=== PATIENT | female | born 1965 | race Caucasian/White ===

== ENCOUNTER 2023-06-17 13:08 | Emergency (ER) | payer OTHER, SELFPAY ==
[2023-06-17 13:09] VITALS: BP 120/76
[2023-06-17 13:44] VITALS: BP 98/59
[2023-06-17 13:51] LABS: % Basophils 0.5 % (0-2); % Eosinophils 2.7 % (0-6); % Immature Granulocytes 0.3 % (0-0.5); % Lymphocytes 26.3 % (20.5-51.1); % Monocytes 10.1 % (1.7-9.3); % Neutrophils 60.1 % (42.2-75.2); Absolute Eosinophils 0.1 10^3/uL (0-0.7); Absolute Monocytes 0.4 10^3/uL (0.1-0.6); Absolute Neutrophils 2.3 10^3/uL (1.4-6.5); Hematocrit 35.4 % (37.0-47.0); Hemoglobin 12.2 g/dL (12.0-16.0); Mean Corp Hgb Conc. 34.5 g/dL (33.0-37.0); Mean Corpuscular Hgb 30.7 pg (27.0-31.0); Mean Corpuscular Volume 89.2 fL (81.0-99.0); Mean Platelet Volume 9.7 fL (7.4-10.4); Nucleated Red Blood Cells % 0 %; Platelet Count 220 10^3/uL (130-400); Red Blood Cell Count 3.97 10^6/uL (4.20-5.40); Red Cell Dist. Width 12.1 % (11.5-14.5); White Blood Cell Count 3.8 10^3/uL (4.8-10.8)
[2023-06-17 14:06] LABS: ALT (SGPT) 22 U/L (0-35); AST (SGOT) 24 U/L (14-36); Albumin 4.4 g/dl (3.5-5.0); Alkaline Phosphatase 94 U/L (38-126); Blood Urea Nitrogen 16 mg/dl (7-17); Carbon Dioxide 27 mmol/L (22-30); Chloride 105 mmol/L (98-107); Glucose 113 mg/dl (70-99); Potassium 3.7 mmol/L (3.5-5.1); Sodium 138 mmol/L (135-145); Total Bilirubin 0.3 mg/dl (0.2-1.3); Total Protein 6.9 g/dl (6.3-8.2); eGFR > 60.00
[2023-06-17 14:08] VITALS: BP 93/64
[2023-06-17 14:17] LABS: Troponin I < 0.012 ng/ml
[2023-06-17 14:22] LABS: Urine Albumin Negative (Neg - Trace); Urine Bilirubin Negative (Negative); Urine Character Clear (Clear); Urine Color Yellow; Urine Glucose Negative (Negative); Urine Ketone Negative (Negative); Urine Leukocyte Negative (Negative); Urine Nitrite Negative (Negative); Urine Occult Blood Negative (Negative); Urine Urobilinogen Negative (Neg - 1+)
[2023-06-17 15:00] VITALS: BP 111/74
--- NOTE | 2023-06-17 15:26 | ED.GENMED ---
History of Present Illness
General
Chief Complaint: Chest Pain
Source: patient
Exam Limitations: none
Time Seen by Provider: 06/17/23 13:23
Nursing documentation reviewed up to this point in time: agreed with
Travel History
Have you had any contact with someone who has COVID-19?: No
Do you have any symptoms of coronavirus? Fever > 100 degrees, chills, cough, shortness of breath, sore throat, loss of taste or smell, muscle aches, or headache?: No
History of Present Illness
History of Present Illness:
58-year-old female with no significant past medical history states she woke at 7 AM with right chest sharp pains at the level of her breast. She took 2 baby aspirin and Tums about 30 minutes later had some relief.
She states the pain is worse with deep breathing, pressing on the area. She had a recent URI 2 to 3 weeks ago after her had COVID. She tested COVID-negative however.
She did a lot of vacuuming yesterday because she got a new vacuum, she has been lifting up up her 27 pound dog as it recently had surgery
She denies N/V/D/C, denies shortness of breath or abdominal pain. She has had no lightheadedness or diaphoresis.
Past History
Past History
ED Past Medical History: None
ED Past Surgical History: Cholecystectomy and
Social History
Tobacco: Former smoker
Alcohol: Occasional
Personal:
Living: with family
Employment: Employed
Family History
Family History: CAD (Dad had [place] at age 50, at age 79, mom had MO in her 60s, age 70)
Review of Systems
Review of Systems
Allergies reviewed?: Yes
All Other Systems: ROS reviewed and negative except as documented in HPI and ROS
Constitutional: Denies fever
Respiratory: Denies trouble breathing
Cardiac: Reports chest pain (more chest wall pain); Denies diaphoresis, palpitations or syncope
ABD/GI: Denies abdominal pain, nausea or vomiting
: Reports frequency; Denies dysuria, flank pain, difficulty voiding or urgency
Skin: Reports no symptoms
Neurological: Reports no symptoms
Phy Exam
Physical Exam
Physical Exam:
GENERAL: No acute distress. A&Ox3.
CONSTITUTIONAL: Afebrile.
EYES: clear, conjunctivae normal
Neck: Supple
ENMT: moist mucus membranes, Pharynx nl
RESPIRATORY: Regular respirations, nonlabored, lungs clear.
CARDIOVASCULAR: Regular rate and rhythm, no murmurs, no rubs.
GI: Soft, nontender, normal BS
MUSCULOSKELETAL: Tender to palpation right sternocostal border, palpation here immediately reproduces pain. Moves with ease. Well perfused.
SKIN: Warm, dry, pink
PSYCH: Normal mood and affect. Well kept, interactive and appropriate
NEUROLOGIC: Awake, alert and oriented. No focal neurological deficits
Scores
Heart Score for Chest Pain Patients
STEMI patient?: Not applicable
Course
Orders/Labs/Results
Orders:
Orders
06/17/23 13:11
Electrocardiogram (*1) Urgent
Reason for Study: Chest Pain
EKG- Treatment ONCE
06/17/23 13:33
Complete Blood Count/With Diff Urgent
Comprehensive Metabolic Panel Urgent
Troponin I Urgent
06/17/23 14:10
Urinalysis Reflex To Culture Urgent
Date Specimen was Collected: 06/17/23
Time Specimen was Collected: 14:03
Abnormal Lab Results
06/17/23
13:33
WBC 3.8 L 10^3/uL
(4.8-10.8)
RBC 3.97 L 10^6/uL
(4.20-5.40)
Hct 35.4 L %
(37.0-47.0)
Absolute Lymphs (auto) 1.0 L 10^3/uL
(1.2-3.4)
Monocytes % 10.1 H %
(1.7-9.3)
Glucose 113 H mg/dl
(70-99)
06/17/23 13:33
06/17/23 13:33
Vital Signs
Initial and Last Documented VS:
Initial Vital Signs
Temp Pulse Resp BP Pulse Ox
98.1 F 79 16 120/76 98
06/17/23 13:09 06/17/23 13:09 06/17/23 13:09 06/17/23 13:09 06/17/23 13:09
Last Documented Vital Signs
Temp Pulse Resp BP Pulse Ox
98.1 F 66 18 111/74 99
06/17/23 13:09 06/17/23 15:30 06/17/23 15:30 06/17/23 15:00 06/17/23 15:15
MDM/Problems Addressed
Differential Diagnosis Includes:
Costochondritis, ACS less likely
MDM/Problems Addressed:
58-year-old female with no significant past medical history states she woke at 7 AM with right chest sharp pains at the level of her breast. She took 2 baby aspirin and Tums about 30 minutes later had some relief.
She states the pain is worse with deep breathing, pressing on the area. She had a recent URI 2 to 3 weeks ago after her had COVID. She tested COVID-negative however.
She did a lot of vacuuming yesterday because she got a new vacuum, she has been lifting up up her 27 pound dog as it recently had surgery
She denies N/V/D/C, denies shortness of breath or abdominal pain. She has had no lightheadedness or diaphoresis.
She has been having urinary frequency, followed by her PCP
Afebrile. EKG: NSR
3:29 PM
CBC with no clinically significant abnormality
CMP normal
Troponin normal
Urinalysis negative
Patient reassured most likely costochondritis
*EKG
EKG Intrepretation Date: 06/17/23
Interpretation: normal
Rate: normal
Rhythm: sinus
[place]: normal axis
Interval: normal interval
QRS Pattern: normal QRS
Ischemia: no ischemia
*Critical Care Note
Total Time (30-74mins, 75-104mins- exclusive of procedures): Not Applicable
ED Attending Note
-
Portions of this chart may have been created with voice recognition software.� Occasional wrong word or��sound alike� substitutions may have occurred due to the inherent limitations of voice recognition software.
Discharge Plan
Departure
Patient Disposition: Home (Routine Discharge)
Date of Disposition: 06/17/23
Time of Disposition: 15:30
Patient with high blood pressure during this ER visit?: No
Condition: Good
Discharge Problem:
Acute costochondritis
Instructions: Chest Pain That Is Not Caused by the Heart (DC), Costochondritis (DC)
Prescriptions:
No Action
cephalexin 500 MG capsule
500 mg PO TID Qty: 15 0RF
cefpodoxime 200 mg tablet
200 mg PO BID 10 Days Qty: 20 0RF
Referrals:
Vicky Martinez MD [Family Provider] - As needed
Activity Restrictions/Additional Instructions:
As we discussed, there is no indication of any damage to your heart, your history and exam is consistent with costochondritis. Avoid lifting anything over 5 pounds for the next week.
Ibuprofen 600 mg, with food, every 6 hours as needed for pain.
Your urine test showed no sign of infection.
Interventions
Interventions:
*Risk Screen - Suicide Last Done: 06/17/23 13:31
*Neglect/Abuse Screening Last Done: 06/17/23 13:31
*ED COVID-19 Vaccine History Last Done: 06/17/23 13:09
*Nursing Disposition Last Done: 06/17/23 15:52
ED- Cardiac Assessment Last Done: 06/17/23 13:31
Discharge Date and Time
Discharge Date/Time: 06/17/23 15:52
Print Language: INDONESIAN
== END 2023-06-17 15:52 | disposition home or self-care (01) ==
LOC: EMR 13:08
PROVIDERS: Registered Nurse; EMERGENCY PHYSICIAN Emergency Medicine; FAMILY PHYSICIAN Family Medicine
DX: M94.0 Chondrocostal junction syndrome [Tietze] (principal); Z87.891 Personal history of nicotine dependence
CPT/HCPCS: 99284; 80053; 81003; 84484; 85025; 93005

== ENCOUNTER 2023-06-20 09:20 | Emergency (ER) | payer OTHER, SELFPAY ==
[2023-06-20 09:23] VITALS: BP 137/90
[2023-06-20 09:48] LABS: % Basophils 0.3 % (0-2); % Eosinophils 0.9 % (0-6); % Immature Granulocytes 0.3 % (0-0.5); % Lymphocytes 8.5 % (20.5-51.1); % Monocytes 6.3 % (1.7-9.3); % Neutrophils 83.7 % (42.2-75.2); Absolute Eosinophils 0.1 10^3/uL (0-0.7); Absolute Monocytes 0.7 10^3/uL (0.1-0.6); Absolute Neutrophils 9.3 10^3/uL (1.4-6.5); Hematocrit 37.7 % (37.0-47.0); Hemoglobin 12.9 g/dL (12.0-16.0); Mean Corp Hgb Conc. 34.2 g/dL (33.0-37.0); Mean Corpuscular Hgb 30.8 pg (27.0-31.0); Mean Platelet Volume 9.6 fL (7.4-10.4); Nucleated Red Blood Cells % 0 %; Platelet Count 225 10^3/uL (130-400); Red Blood Cell Count 4.19 10^6/uL (4.20-5.40); Red Cell Dist. Width 12.1 % (11.5-14.5); White Blood Cell Count 11.2 10^3/uL (4.8-10.8)
[2023-06-20 09:56] VITALS: BMI 33.6
[2023-06-20 10:07] LABS: ALT (SGPT) 19 U/L (0-35); AST (SGOT) 23 U/L (14-36); Albumin 4.6 g/dl (3.5-5.0); Alkaline Phosphatase 104 U/L (38-126); Blood Urea Nitrogen 11 mg/dl (7-17); Calcium 9.4 mg/dl (8.4-10.2); Carbon Dioxide 28 mmol/L (22-30); Chloride 101 mmol/L (98-107); Estimated Creatinine Clearance 109 ml/min; Glucose 117 mg/dl (70-99); Lipase 48 U/L (23-300); Sodium 134 mmol/L (135-145); Total Bilirubin 0.9 mg/dl (0.2-1.3); Total Protein 7.4 g/dl (6.3-8.2); eGFR > 60.00
--- NOTE | 2023-06-20 10:17 | ED.GENMED ---
History of Present Illness
General
Chief Complaint: Abdominal Pain
Source: patient
Exam Limitations: none
Time Seen by Provider: 06/20/23 09:48
Nursing documentation reviewed up to this point in time: agreed with
Travel History
Have you had any contact with someone who has COVID-19?: No
Do you have any symptoms of coronavirus? Fever > 100 degrees, chills, cough, shortness of breath, sore throat, loss of taste or smell, muscle aches, or headache?: No
History of Present Illness
History of Present Illness:
pt is a 58 y/o F
no sig chronic medical problems
here with abdominal pain x 2 days
pt says that she was having some belching and gas and chest discomfort 3 days ago and was seen here
it was i nthe setting of recently carrying her dog who had surgery and it was felt after her cardiac w/u was neg that it was likely muscular
she was told to take tylenol/motrin
pt says that she went home and the following evening started having epigastric and mid abdominal pain and hasn't really had an appetite since. she had a few loose stools yesterday but not diarrhea. she woke up this morning with the same pain and
decided to come in rather than claling her PCP
she has not taken anything for pain
felt like she had a fever yesterday but didn't take her temp
no tylenol/motrin today, denies vomiting, cp, sob.
Past History
Past History
ED Past Medical History: None
ED Past Surgical History: Cholecystectomy and
Social History
Tobacco: Former smoker
Alcohol: Occasional
Personal:
Living: with family
Employment: Employed
Family History
Family History: CAD (Dad had [place] at age 50, at age 79, mom had [place] in her 60s, age 70)
Review of Systems
Review of Systems
Allergies reviewed?: Yes
All Other Systems: Not applicable
Phy Exam
Physical Exam
Physical Exam:
GENERAL: Alert , in no apparent distress
EYE: pupils equal and reactive
NECK: Supple
ENT: o/p clr, mmm.
CARDIAC: Regular rate and rhythm .
LUNGS: Clear breath sounds bilaterally, no acute respiratory distress, no wheezes/rales/rhonchi
ABDOMEN: Soft,mild epigastric tenderness, no RUQ tendenress/miranda's sign; no r/g, no cvat, normal bowel sounds
NEUROLOGICAL: Alert and oriented, no focal neuro deficits
SKIN: Warm and dry, skin intact.
MUSCULOSKELETAL: No edema, well perfused.
PSYCH: Normal and appropriate interaction.
Course
Orders/Labs/Results
Orders:
Orders
06/20/23 09:37
Complete Blood Count/With Diff Urgent
Comprehensive Metabolic Panel Urgent
Lipase Urgent
06/20/23 10:12
CT Abd/Pel (IV only)-DH only Urgent
Comment:
Reason For Exam: abd pain, belching, bloating
Famotidine [Pepcid] 20 mg IV NOW STA
06/20/23 10:13
CR Chest - 2 Views Urgent
Comment:
Reason For Exam: chest pain a few days ago, bleching
06/20/23 10:25
COVID-19 Antigen Urgent
Source: Nasal Swab
Influenza A+B Rapid Molecular Urgent
SHAYNA Source: Nasal Swab
Specimen Description:
06/20/23 13:25
Dicyclomine [Bentyl] 20 mg PO NOW STA
Abnormal Lab Results
06/20/23
09:37
WBC 11.2 H 10^3/uL
(4.8-10.8)
RBC 4.19 L 10^6/uL
(4.20-5.40)
Absolute Neuts (auto) 9.3 H 10^3/uL
(1.4-6.5)
Absolute Lymphs (auto) 1.0 L 10^3/uL
(1.2-3.4)
Absolute Monos (auto) 0.7 H 10^3/uL
(0.1-0.6)
Neutrophils % 83.7 H %
(42.2-75.2)
Lymphocytes % 8.5 L %
(20.5-51.1)
Sodium 134 L mmol/L
(135-145)
Glucose 117 H mg/dl
(70-99)
06/20/23 09:37
06/20/23 09:37
Vital Signs
Initial and Last Documented VS:
Initial Vital Signs
Temp Pulse Resp BP Pulse Ox
98.0 F 108 20 137/90 96
06/20/23 09:23 06/20/23 09:23 06/20/23 09:23 06/20/23 09:23 06/20/23 09:23
Last Documented Vital Signs
Temp Pulse Resp BP Pulse Ox
98.4 F 99 20 111/59 96
06/20/23 13:35 06/20/23 13:35 06/20/23 09:23 06/20/23 13:35 06/20/23 13:35
MDM/Problems Addressed
Differential Diagnosis Includes:
Gastritis, colitis, viral syndrome, constipation
MDM/Problems Addressed:
88-year-old female presents for mild to moderate upper and mid abdominal discomfort over the last 2 days. Patient was here the day before the pain started with some chest discomfort, had a workup with an EKG and troponin and that were normal and
was told it was probably musculoskeletal. Patient had previously had been lifting her dog who was postop from a procedure. The following day she got some abdominal bloating and discomfort and lack of appetite, fatigue, had some looser stool
yesterday but did not qualify it as diarrhea but says it was a pretty decent volume, 4 episodes total but has not had any diarrhea today. Today she just feels lack of appetite and the same discomfort. She has no risk factors for ischemic colitis.
On exam she had mild epigastric discomfort and some bloating, active bowel sounds, not significantly tender, no guarding or rebound. Her labs show a white count of 11.2 with a left shift, otherwise unremarkable electrolytes. Her COVID was
negative. Chest x-ray was clear and her abdominal CT shows findings of colitis in the ascending colon. Patient had a colonoscopy which I reviewed the report from several years ago which showed normal terminal ileum and no findings concerning for
inflammatory colitis. Suspect this is likely viral in nature. Given the fact that she is not having active diarrhea and this is only been going on for 2 days I felt that it would be best to hold antibiotics. Bentyl, Tylenol, fluids, return
precautions
*Critical Care Note
Total Time (30-74mins, 75-104mins- exclusive of procedures): Not Applicable
ED Attending Note
-
Portions of this chart may have been created with voice recognition software.� Occasional wrong word or��sound alike� substitutions may have occurred due to the inherent limitations of voice recognition software.
Discharge Plan
Departure
Patient Disposition: Home (Routine Discharge)
Date of Disposition: 06/20/23
Time of Disposition: 13:22
Patient with high blood pressure during this ER visit?: No
Condition: Fair
Covid-19: Not Applicable
Discharge Problem:
Colitis
Instructions: Colitis (DC)
Prescriptions:
New
dicyclomine 20 mg tablet
20 mg PO TID PRN (Reason: abdominal pain) Qty: 15 0RF
No Action
cephalexin 500 MG capsule
500 mg PO TID Qty: 15 0RF
cefpodoxime 200 mg tablet
200 mg PO BID 10 Days Qty: 20 0RF
Referrals:
Vicky Martinez MD [Family Provider] -
Malu Brewer DO [Active] - Follow up in 5-7 days (GI)
Activity Restrictions/Additional Instructions:
Your pain is likely from colitis which is probably a viral infection. Try to let it run its course. You can eat a bland diet, drink liquids to start and then increase as tolerated. You can use a probiotic daily.
Use Bentyl 20 mg every 8 hours as needed for crampy abdominal pain. You can also take Tylenol.
If you start getting diarrhea that would not be unusual. If your diarrhea is bloody or profuse you need to have it tested. Return to the ER for bloody diarrhea, fever or chills, severe worsening pain, dehydration, vomiting or any concerns.
Otherwise hopefully this self resolves over the next couple of days.
You should have an evaluation by GI doctor for persistent symptoms. Sometimes colitis is inflammatory and requires additional management.
Interventions
Interventions:
*Risk Screen - Suicide Last Done: 06/20/23 09:56
*General Assessment Last Done: 06/20/23 09:56
*Neglect/Abuse Screening Last Done: 06/20/23 09:56
ED- Fall Risk Assessment Last Done: 06/20/23 09:57
*ED COVID-19 Vaccine History Last Done: 06/20/23 09:23
*Nursing Disposition Last Done: 06/20/23 13:35
[id number] Assessment Last Done: 06/20/23 09:57
Discharge Date and Time
Discharge Date/Time: 06/20/23 13:39
Print Language: CROATIAN
[2023-06-20] MEDS: PEPCID 20 MG IV (10:39)
[2023-06-20 11:05] LABS: COVID-19 Antigen Negative (Negative)
[2023-06-20 13:26] VITALS: BP 111/59
[2023-06-20] MEDS: BENTYL 20 MG PO (13:29)
[2023-06-20 13:35] VITALS: BP 111/59
== END 2023-06-20 13:39 | disposition home or self-care (01) ==
LOC: EMR 09:20
PROVIDERS: Emergency Medicine; Physician Assistant; EMERGENCY PHYSICIAN Student in an Organized Health Care Education/Training Program; FAMILY PHYSICIAN Family Medicine
DX: K52.9 Noninfective gastroenteritis and colitis, unspecified (principal); Z87.891 Personal history of nicotine dependence; Z11.52 Encounter for screening for COVID-19
CPT/HCPCS: 99285; 96374; 71046; 74177; 80053; 83690; 85025; 87502; 87811; Q9967

== ENCOUNTER → 2023-10-22 06:28 | Day surgery (SDC) | payer OTHER, SELFPAY | LOC: GI 06:28 | PROVIDERS: ATTENDING PHYSICIAN Internal Medicine | DX: Z12.11 Encounter for screening for malignant neoplasm of colon (principal); K63.89 Other specified diseases of intestine; K64.4 Residual hemorrhoidal skin tags; Z86.010 Personal history of colon polyps; Z87.19 Personal history of other diseases of the digestive system | CPT/HCPCS: G0105 ==

== ENCOUNTER → 2023-11-21 07:13 | Outpatient (REF) | payer OTHER, SELFPAY | LOC: RCS 07:13 | PROVIDERS: ATTENDING PHYSICIAN Internal Medicine Cardiovascular Disease; FAMILY PHYSICIAN Family Medicine | DX: E78.2 Mixed hyperlipidemia (principal); R06.02 Shortness of breath | CPT/HCPCS: 93306 ==

== ENCOUNTER → 2023-11-29 07:48 | Outpatient (REF) | payer OTHER, SELFPAY | LOC: RCS 07:48 | PROVIDERS: ATTENDING PHYSICIAN Internal Medicine Cardiovascular Disease; FAMILY PHYSICIAN Family Medicine; OTHER PHYSICIAN Internal Medicine | DX: E78.2 Mixed hyperlipidemia (principal); R06.02 Shortness of breath | CPT/HCPCS: 93017 ==

== ENCOUNTER → 2024-11-20 07:05 | Outpatient (REF) | payer OTHER, SELFPAY | LOC: HWRCS 07:05 | PROVIDERS: ATTENDING PHYSICIAN Internal Medicine Cardiovascular Disease; FAMILY PHYSICIAN Family Medicine | DX: R06.02 Shortness of breath (principal) | CPT/HCPCS: 78452; 93017; A9500 ==